=== PATIENT | female | born 1970 | race Two or more races ===

== ENCOUNTER 2024-10-08 18:16 | Emergency (ER) | payer MEDICAID, SELFPAY ==
[2024-10-08 18:34] VITALS: BP 161/97; PULSE 96; RESP 18; TEMP 37.2; O2SAT 96; BMI 46.3
--- NOTE | 2024-10-08 19:05 | XR_ITS ---
Examination: PA chest single view Technique: Upright PA chest single view Exam date and time: October 08, 2024 1914 hrs. Comparison November 30, 2019 Indications: Coughing shortness of breath today. Findings: Mild enlargement cardiac contour Mild increased markings at the right lung base Mild vascular congestion Intact osseous structures Impression: Suspicious for early right base pneumonia, clinical correlation advised
--- NOTE | 2024-10-08 19:05 | PD.EDRME ---
Rapid Medical Screening Exam [facility] Arrival date/time: 10/08/24 18:16 54F with history of hypothyroidism, HTN, DM, and developmental delay presents to ED with several days of cough, fevers/chills, and some SOB. Chief Complaint: Flu Like Symptoms Vital signs: Vital Signs Temperature 99 F 10/08/24 18:34 Pulse Rate 96 10/08/24 18:34 Respiratory Rate 18 10/08/24 18:34 Blood Pressure 161/97 H 10/08/24 18:34 Pulse Oximetry (%) 96 10/08/24 18:34 Oxygen Delivery Method Room Air 10/08/24 18:34
--- NOTE | 2024-10-08 19:06 | EKG_ITS ---
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
--- NOTE | 2024-10-08 19:40 | PD.EDRME ---
Rapid Medical Screening Exam [facility] Arrival date/time: 10/08/24 18:16 10/08/24 18:16 54F with history of hypothyroidism, HTN, DM, and developmental delay presents to ED with several days of cough, fevers/chills, and some SOB. Chief Complaint: Flu Like Symptoms Time Seen by Provider: 10/08/24 19:34 Vital signs: Vital Signs Temperature 99 F 10/08/24 18:34 Pulse Rate 96 10/08/24 18:34 Respiratory Rate 18 10/08/24 18:34 Blood Pressure 161/97 H 10/08/24 18:34 Pulse Oximetry (%) 96 10/08/24 18:34 Oxygen Delivery Method Room Air 10/08/24 18:34 [facility] Narrative: 10/08/24 18:16 54F with history of hypothyroidism, HTN, DM, and developmental delay presents to ED with several days of cough, fevers/chills, and some SOB.
--- NOTE | 2024-10-08 19:41 | PC.NURSE ---
Addendum entered by Paris Todd 10/08/24 19:57: called from lobby/outside, no answer @ 1955 Original Note: called for pt from lobby/outside, no answerx1@ 1940
[2024-10-08 19:56] LABS: Basophils # (Auto) 0.1 Thou/mm3 (0.0-0.2); Basophils % (Auto) 1 % (0-2.5); Eosinophils # (Auto) 0.1 Thou/mm3 (0.0-0.5); Eosinophils % (Auto) 1 % (0-10); Hematocrit 38.5 % (36.0-46.0); Immature Granulocytes % (Auto) 0 % (0-0); Immature Granulocytes Auto 0.03 Thou/mm3 (0.00-0.00); Lymphocytes # (Auto) 1.4 Thou/mm3 (1.0-4.8); Lymphocytes % (Auto) 13 % (10-50); Mean Corpuscular HGB Conc 31.2 g/dl (31.0-37.0); Mean Corpuscular Hemoglobin 27.3 pg (25.0-35.0); Mean Corpuscular Volume 88 fL (80-100); Monocytes # (Auto) 0.7 Thou/mm3 (0.0-0.8); Monocytes % (Auto) 7 % (0-12); Neutrophils # (Auto) 8.4 Thou/mm3 (1.8-7.7); Neutrophils % (Auto) 79 % (37-80); Nucleated Red Blood Cell % 0 /100 WBC (0); Platelet Count 316 Thou/mm3 (140-440); RDW Standard Deviation 44.8 fL (36.4-46.3); Red Blood Count 4.39 Miln/mm3 (4.00-5.20); White Blood Count 10.7 Thou/mm3 (3.6-11.0)
[2024-10-08 20:15] LABS: B-Type Natriuretic Peptide 116 pg/mL (0-100)
[2024-10-08 20:17] LABS: Alanine Aminotransferase 18 U/L (10-49); Albumin, Serum 4.7 gm/dL (3.5-5.0); Albumin/Globulin Ratio 1.5 (1.2-2.2); Alkaline Phosphatase 148 U/L (46-116); Anion Gap 7 (7-16); Aspartate Amino Transferase 19 U/L (0-34); BUN/Creatinine Ratio 26 Ratio (12-20); Bilirubin,Total 0.2 mg/dL (0.3-1.2); Blood Urea Nitrogen 21 mg/dL (9-23); Calcium 10.3 mg/dL (8.3-10.6); Calcium (Corrected) 10.3 mg/dL (8.5-10.1); Carbon Dioxide 30.6 mMol/L (20.0-31.0); Chloride 107 mMol/L (98-107); Creatinine (Component) 0.8 mg/dL (0.6-1.3); Estimated Creatinine Clearance 89.2 mL/min (>60); Globulin 3.2 gm/dL (2.3-3.5); Glucose 115 mg/dL (74-106); Osmolality,Calculated 292 (275-295); Potassium 4.1 mMol/L (3.4-5.1); Sodium 145 mMol/L (136-145); Total Protein 7.9 gm/dL (5.7-8.2); Troponin I < 0.020 ng/mL (0.0-0.045); eGFR > 60 See Note
[2024-10-08 22:04] LABS: Procalcitonin 0.04 ng/ml (0.0-0.49)
== END 2024-10-08 20:06 | disposition left against medical advice (07) ==
LOC: SERX 19:25
PROVIDERS: Physician Assistant; Emergency Provider Emergency Medicine; PCP Registered Nurse Community Health
DX: R05.9 Cough, unspecified (principal); R50.9 Fever, unspecified; R06.02 Shortness of breath; R94.31 Abnormal electrocardiogram [ECG] [EKG]; Z53.29 Procedure and treatment not carried out because of patient's decision for other reasons
CPT/HCPCS: 36415; 71045; 80053; 83880; 84145; 84484; 85025; 93005; 99283